=== PATIENT | male | born 1960 | race Caucasian/White ===

== ENCOUNTER 2020-01-05 16:00 | Observation (INO) ==
[2020-01-05 17:25] LABS: Basophils # 0.1 K/mcL (0.0-0.2); Basophils % 0.7 %; Eosinophils # 0.3 K/mcL (0.0-0.6); Eosinophils % 3.1 %; Hemoglobin 18.4 g/dL (12.9-16.9); Immature Granulocytes % 0.2 % (0-4); Lymphocytes # 1.2 K/mcL (0.6-4.6); Lymphocytes % 13.1 %; Mean Corpuscular HGB Conc 32.3 g/dL (31.6-35.5); Mean Corpuscular Hemoglobin 32.3 pg (28.0-33.3); Mean Platelet Volume 9.2 fL (9.4-12.4); Monocytes # 1.1 K/mcL (0.0-1.3); Monocytes % 12.3 %; Neutrophils # 6.2 K/mcL (1.6-8.9); Platelet Count 269 K/mcL (140-400); Red Blood Count 5.69 M/mcL (4.19-5.50); Red Cell Distribution Width 14.3 % (11.5-14.5); Segmented Neutrophils % 70.6 %; White Blood Count 8.8 K/mcL (4.3-11.1)
[2020-01-05 17:26] LABS: Hematocrit 56.9 % (37.5-50.1)
[2020-01-05 17:37] LABS: Prothrombin Time 11.7 Seconds (9.4-12.1)
[2020-01-05 17:40] LABS: Activated Partial Thrombo Time 33.4 Seconds (26.0-36.0)
[2020-01-05 17:49] LABS: Alanine Aminotransferase 4 Units/L (7-52); Albumin 3.8 g/dL (3.5-5.7); Albumin/Globulin Ratio 1.1 (1.1-2.2); Alkaline Phosphatase 73 Units/L (34-104); Aspartate Amino Transferase 11 Units/L (13-39); BUN/Creatinine Ratio 18 (6-26); Bilirubin,Total 0.6 mg/dL (0.3-1.0); Blood Urea Nitrogen 13 mg/dL (8-23); Calcium 9.7 mg/dL (8.6-10.3); Carbon Dioxide 30 mEq/L (23-29); Chloride 100 mEq/L (98-107); Globulin 3.6 g/dL (2.4-3.5); Glucose 98 mg/dL (70-105); Osmolality,Calculated 282 (280-300); Potassium 4.9 mEq/L (3.5-5.1); Sodium 136 mEq/L (136-145); Total Protein 7.4 g/dL (6.4-8.9); eGFR For African Americans > 60 (> 60); eGFR For Non-African Americans > 60 (> 60)
[2020-01-05] MEDS ORDERED: Naloxone 0.4 MG/ML INJ IVP PRN (20:29)
[2020-01-05] MEDS ORDERED: *HR* Enoxaparin 80 MG/0.8 ML SYRINGE SQ SCH (20:45)
[2020-01-05] MEDS ORDERED: Acetaminophen 325 MG TABLET PO PRN (22:19)
[2020-01-06 02:39] LABS: Hematocrit 53.1 % (37.5-50.1); Hemoglobin 17.7 g/dL (12.9-16.9); Mean Corpuscular HGB Conc 33.3 g/dL (31.6-35.5); Mean Corpuscular Hemoglobin 33.3 pg (28.0-33.3); Mean Corpuscular Volume 99.8 fL (83.0-100.0); Mean Platelet Volume 9.7 fL (9.4-12.4); Platelet Count 250 K/mcL (140-400); Red Blood Count 5.32 M/mcL (4.19-5.50); White Blood Count 6.5 K/mcL (4.3-11.1)
[2020-01-06 03:03] LABS: BUN/Creatinine Ratio 22 (6-26); Blood Urea Nitrogen 13 mg/dL (8-23); Carbon Dioxide 27 mEq/L (23-29); Chloride 102 mEq/L (98-107); Glucose 105 mg/dL (70-105); Osmolality,Calculated 282 (280-300); Potassium 3.5 mEq/L (3.5-5.1); Sodium 136 mEq/L (136-145); eGFR For African Americans > 60 (> 60); eGFR For Non-African Americans > 60 (> 60)
[2020-01-06] MEDS ORDERED: *HR* Enoxaparin 80 MG/0.8 ML SYRINGE SQ SCH (09:00)
[2020-01-06] MEDS: *HR* Enoxaparin 60 MG/0.6 ML SYRINGE SQ SCH (20:37)
[2020-01-07 03:28] LABS: Hemoglobin 17.6 g/dL (12.9-16.9); Mean Corpuscular HGB Conc 33.2 g/dL (31.6-35.5); Mean Corpuscular Hemoglobin 32.8 pg (28.0-33.3); Mean Corpuscular Volume 98.7 fL (83.0-100.0); Mean Platelet Volume 9.3 fL (9.4-12.4); Platelet Count 239 K/mcL (140-400); Red Blood Count 5.37 M/mcL (4.19-5.50); Red Cell Distribution Width 14.1 % (11.5-14.5); White Blood Count 5.8 K/mcL (4.3-11.1)
[2020-01-07] MEDS: *HR* Enoxaparin 60 MG/0.6 ML SYRINGE SQ SCH (05:40)
[2020-01-07 09:06] VITALS: BP 144/85
== END 2020-01-07 12:00 | disposition home or self-care (01) ==
LOC: 2ANU 16:00 → EMEROOARM 16:00 → 2ANU 20:09
PROVIDERS: ADMIT Family Medicine; ATTEND Family Medicine

== ENCOUNTER 2020-08-27 14:56 | Observation (INO) ==
[2020-08-27] MEDS ORDERED: Ibuprofen 400 MG TABLET PO ONE (16:18)
[2020-08-27] MEDS ORDERED: Isovue-370 500 ML BOTTLE IVP ONE (16:18)
[2020-08-27 16:19] LABS: Basophils # 0.1 K/mcL (0.0-0.2); Basophils % 0.7 %; Eosinophils # 0.1 K/mcL (0.0-0.6); Eosinophils % 0.7 %; Hematocrit 50.1 % (37.5-50.1); Hemoglobin 16.9 g/dL (12.9-16.9); Immature Granulocytes % 0.3 % (0-4); Lymphocytes # 1.2 K/mcL (0.6-4.6); Lymphocytes % 17.2 %; Mean Corpuscular HGB Conc 33.7 g/dL (31.6-35.5); Mean Corpuscular Hemoglobin 34.2 pg (28.0-33.3); Mean Corpuscular Volume 101.4 fL (83.0-100.0); Mean Platelet Volume 9.7 fL (9.4-12.4); Monocytes % 15.4 %; Neutrophils # 4.4 K/mcL (1.6-8.9); Platelet Count 257 K/mcL (140-400); Red Blood Count 4.94 M/mcL (4.19-5.50); Red Cell Distribution Width 13.1 % (11.5-14.5); Segmented Neutrophils % 65.7 %; White Blood Count 6.7 K/mcL (4.3-11.1)
[2020-08-27] MEDS ORDERED: 0.9 % Sodium Chloride 1,000 ML IVC ONE (16:21)
[2020-08-27 16:40] LABS: BUN/Creatinine Ratio 18 (6-26); Blood Urea Nitrogen 18 mg/dL (8-23); Calcium 9.7 mg/dL (8.6-10.3); Carbon Dioxide 33 mEq/L (23-29); Chloride 95 mEq/L (98-107); Glucose 125 mg/dL (70-105); Osmolality,Calculated 283 (280-300); Potassium 3.5 mEq/L (3.5-5.1); Sodium 135 mEq/L (136-145); eGFR For African Americans > 60 (> 60); eGFR For Non-African Americans > 60 (> 60)
[2020-08-27 16:50] LABS: Alanine Aminotransferase 10 Units/L (7-52); Albumin 4.3 g/dL (3.5-5.7); Albumin/Globulin Ratio 1.3 (1.1-2.2); Alkaline Phosphatase 60 Units/L (34-104); Aspartate Amino Transferase 19 Units/L (13-39); Bilirubin,Direct 0.1 mg/dL (0.0-0.2); Bilirubin,Indirect 0.6 mg/dL (0.0-1.0); Bilirubin,Total 0.7 mg/dL (0.3-1.0); Globulin 3.4 g/dL (2.4-3.5); Total Protein 7.7 g/dL (6.4-8.9); Troponin I < 0.03 ng/mL (< 0.04)
[2020-08-27] MEDS ORDERED: Naloxone 0.4 MG/ML INJ IVP PRN (20:37)
[2020-08-27] MEDS ORDERED: Acetaminophen 325 MG TABLET PO PRN (20:37)
[2020-08-27] MEDS ORDERED: Ondansetron 4 MG/2 ML VIAL IVP PRN (20:37)
[2020-08-27] MEDS ORDERED: 0.9 % Sodium Chloride 1,000 ML IVC SCH (20:45)
[2020-08-27 20:54] LABS: Bilirubin,Urine Negative (Negative); Blood,Urine Negative (Negative); Clarity,Urine Clear (Clear); Color,Urine Yellow (Yellow); Glucose,Urine (UA) Normal (Normal); Ketones,Urine Negative (Negative); Leukocyte Esterase,Urine Negative (Negative); Nitrite,Urine Negative (Negative); PH,Urine 6.5 pH Units (5.0-8.0); Protein,Urine Trace mg/dL (Neg-Trace); Specific Gravity,Urine > 1.030 (1.010-1.025)
[2020-08-28] MEDS ORDERED: *HR* Heparin 5,000 UNIT/ML VIAL IVP ONE (00:17)
[2020-08-28] MEDS ORDERED: *HR* Heparin 5,000 UNIT/ML VIAL IVP PRN ×2 (00:17)
[2020-08-28] MEDS ORDERED: Heparin 25,000UNIT/250ML 1/2NS 25,000 UNIT/250 ML IV.SOLN IVC SCH ×2 (00:30)
[2020-08-28] MEDS ORDERED: Perflutren Lipid Microsphere 1.3 ML in 0.9 % Sodium Chloride 8.7 ML IVP PRN (00:57)
[2020-08-28 02:09] LABS: Mean Corpuscular HGB Conc 33.9 g/dL (31.6-35.5); Mean Corpuscular Hemoglobin 34.1 pg (28.0-33.3); Mean Corpuscular Volume 100.7 fL (83.0-100.0); Platelet Count 216 K/mcL (140-400); Red Blood Count 4.37 M/mcL (4.19-5.50); Red Cell Distribution Width 12.9 % (11.5-14.5); White Blood Count 5.1 K/mcL (4.3-11.1)
[2020-08-28 02:13] LABS: Hemoglobin 14.9 g/dL (12.9-16.9)
[2020-08-28 02:29] LABS: BUN/Creatinine Ratio 23 (6-26); Blood Urea Nitrogen 18 mg/dL (8-23); Calcium 8.7 mg/dL (8.6-10.3); Carbon Dioxide 29 mEq/L (23-29); Chloride 100 mEq/L (98-107); Glucose 121 mg/dL (70-105); Osmolality,Calculated 289 (280-300); Potassium 3.1 mEq/L (3.5-5.1); Sodium 138 mEq/L (136-145); Troponin I < 0.03 ng/mL (< 0.04); eGFR For African Americans > 60 (> 60); eGFR For Non-African Americans > 60 (> 60)
[2020-08-28 03:31] LABS: INR 1.2; Prothrombin Time 14.3 Seconds (9.4-12.1)
[2020-08-28 03:46] LABS: Activated Partial Thrombo Time > 360.0 Seconds (26.0-36.0); Heparin anti-factor XA UFH 1.34 IU/mL (0.30-0.70)
[2020-08-28] MEDS: Loratadine 10 MG TABLET PO SCH (09:47)
[2020-08-28] MEDS: *HR* Rivaroxaban 15 MG TABLET PO SCH ×2 (09:47→20:50)
[2020-08-28] MEDS ORDERED: Nicotine 14 MG PATCH.TD24 TD PRN (16:03)
[2020-08-28] MEDS ORDERED: Nicotine 2 MG GUM BC PRN (16:03)
[2020-08-29 07:32] VITALS: BP 122/76
[2020-08-29] MEDS: Loratadine 10 MG TABLET PO SCH (08:40)
[2020-08-29] MEDS: *HR* Rivaroxaban 15 MG TABLET PO SCH (08:40)
[2020-08-31 03:47] LABS: APTT (LE Anticoag) >150 sec (32-48); Diluted Russell Viper Venom 45 sec (33-44); LE APTT D Heparin Neutralized 55 sec (32-48); LE Coag APTT Mixing 43 sec (32-48); LE Coag Reptilase Time 15.9 sec (<=21.9); LE Dil. Russell Viper Mix 1:1 38 sec (33-44); PT (LE-Anticoag) 17.2 sec (12.0-15.5); Thrombin Time >150.0 sec (14.7-19.5)
== END 2020-08-29 09:58 | disposition home or self-care (01) ==
LOC: EMEROOARM 14:56 → 3ANU 14:56 → SUATTDRO 19:51 → 3ANU 20:50
PROVIDERS: ADMIT Internal Medicine; ATTEND Internal Medicine

== ENCOUNTER 2021-07-07 10:18 | Observation (INO) ==
[2021-07-07] MEDS ORDERED: Aspirin 81 MG TAB.CHEW PO ONE (10:23)
[2021-07-07] MEDS ORDERED: Isovue-370 500 ML BOTTLE IVP ONE (11:01)
[2021-07-07 11:03] LABS: Basophils % 0.5 %; Eosinophils % 0.1 %; Hemoglobin 18.8 g/dL (12.9-16.9); Immature Granulocytes % 0.4 % (0-4); Red Cell Distribution Width 14.3 % (11.5-14.5)
[2021-07-07 11:05] LABS: Hematocrit 53.4 % (37.5-50.1); Immature Platelets 5.9 % (1.1-6.1); Lymphocytes # 0.7 K/mcL (0.6-4.6); Lymphocytes % 8.1 %; Mean Corpuscular HGB Conc 35.2 g/dL (31.6-35.5); Mean Corpuscular Hemoglobin 34.3 pg (28.0-33.3); Mean Corpuscular Volume 97.4 fL (83.0-100.0); Mean Platelet Volume 10.4 fL (9.4-12.4); Monocytes # 0.8 K/mcL (0.0-1.3); Monocytes % 10.2 %; Neutrophils # 6.5 K/mcL (1.6-8.9); Platelet Count 107 K/mcL (140-400); Red Blood Count 5.48 M/mcL (4.19-5.50); Segmented Neutrophils % 80.7 %
[2021-07-07 11:13] LABS: D-Dimer 3870 ng/mLFEU (0-500)
[2021-07-07] MEDS ORDERED: *HR* Heparin 5,000 UNIT/ML VIAL IVP PRN (11:18)
[2021-07-07] MEDS ORDERED: *HR* Heparin 5,000 UNIT/ML VIAL IVP ONE (11:18)
[2021-07-07] MEDS ORDERED: Heparin 25,000UNIT/250ML 1/2NS 25,000 UNIT/250 ML IV.SOLN IVC SCH (11:30)
[2021-07-07 11:33] LABS: INR 1.1; Prothrombin Time 12.5 Seconds (9.4-12.1); Troponin I < 0.03 ng/mL (< 0.04)
[2021-07-07 11:36] LABS: Activated Partial Thrombo Time 36.6 Seconds (26.0-36.0); Heparin anti-factor XA UFH < 0.04 IU/mL (0.30-0.70)
[2021-07-07 11:50] LABS: BUN/Creatinine Ratio 12 (6-26); Blood Urea Nitrogen 8 mg/dL (8-23); Calcium 8.5 mg/dL (8.6-10.3); Carbon Dioxide 25 mEq/L (23-29); Chloride 95 mEq/L (98-107); Glucose 139 mg/dL (70-105); Osmolality,Calculated 275 (280-300); Potassium 3.1 mEq/L (3.5-5.1); Sodium 132 mEq/L (136-145); eGFR For African Americans > 60 (> 60); eGFR For Non-African Americans > 60 (> 60)
[2021-07-07] MEDS ORDERED: Potassium Chloride Elixir 20 MEQ/15 ML UDC PO ONE (12:25)
[2021-07-07] MEDS ORDERED: Perflutren Lipid Microsphere 1.3 ML in 0.9 % Sodium Chloride 8.7 ML IVP PRN (13:21)
[2021-07-07] MEDS ORDERED: Naloxone 0.4 MG/ML INJ IVP PRN (13:21)
[2021-07-07] MEDS: predniSONE 20 MG TABLET PO SCH (14:37)
[2021-07-07] MEDS: Azithromycin 250 MG TABLET PO SCH (14:37)
[2021-07-07] MEDS: Ipratropium/Albuterol Neb 3 ML IH SCH ×2 (15:51→20:14)
[2021-07-07] MEDS: *HR* Heparin 5,000 UNIT/ML VIAL IVP PRN (18:27)
[2021-07-07] MEDS: Budesonide/Formoterol 160/4.5 1 PUFF INH IH SCH (20:18)
[2021-07-08 01:03] LABS: Basophils % 0.2 %
[2021-07-08 01:05] LABS: Hemoglobin 17.7 g/dL (12.9-16.9); Immature Granulocytes % 0.6 % (0-4); Immature Platelets 6.6 % (1.1-6.1); Lymphocytes # 0.4 K/mcL (0.6-4.6); Lymphocytes % 6.8 %; Mean Corpuscular HGB Conc 34.7 g/dL (31.6-35.5); Mean Corpuscular Volume 98.1 fL (83.0-100.0); Mean Platelet Volume 10.7 fL (9.4-12.4); Monocytes # 0.5 K/mcL (0.0-1.3); Monocytes % 7.1 %; Platelet Count 109 K/mcL (140-400); Red Cell Distribution Width 14.1 % (11.5-14.5); Segmented Neutrophils % 85.3 %; White Blood Count 6.4 K/mcL (4.3-11.1)
[2021-07-08 01:11] LABS: Neutrophils # 5.5 K/mcL (1.6-8.9)
[2021-07-08 01:20] LABS: BUN/Creatinine Ratio 13 (6-26); Blood Urea Nitrogen 11 mg/dL (8-23); Calcium 8.5 mg/dL (8.6-10.3); Carbon Dioxide 30 mEq/L (23-29); Chloride 96 mEq/L (98-107); Glucose 172 mg/dL (70-105); Magnesium 1.1 mg/dL (1.6-2.6); Osmolality,Calculated 279 (280-300); Potassium 3.8 mEq/L (3.5-5.1); Sodium 133 mEq/L (136-145); eGFR For African Americans > 60 (> 60); eGFR For Non-African Americans > 60 (> 60)
[2021-07-08] MEDS: *HR* Heparin 5,000 UNIT/ML VIAL IVP PRN (02:30)
[2021-07-08] MEDS: Ipratropium/Albuterol Neb 3 ML IH SCH ×2 (04:04→10:12)
[2021-07-08] MEDS: predniSONE 20 MG TABLET PO SCH (08:26)
[2021-07-08] MEDS: Azithromycin 250 MG TABLET PO SCH (08:26)
[2021-07-08] MEDS ORDERED: lisinopriL 5 MG TABLET PO SCH (09:00)
[2021-07-08] MEDS: Budesonide/Formoterol 160/4.5 1 PUFF INH IH SCH (10:12)
[2021-07-08] MEDS ORDERED: *HR* Rivaroxaban 15 MG TABLET PO SCH (10:30)
[2021-07-08 10:59] VITALS: BP 120/67; PULSE 72; TEMP 98.2; O2SAT 95
[2021-07-08 11:52] LABS: Estimated Average Glucose 100 mg/dl; Hemoglobin A1C 5.1 %
== END 2021-07-08 12:33 | disposition home or self-care (01) ==
LOC: EMEROOARM 10:18 → 3NENU 10:18 → SUATTDRO 12:47 → 3NENU 13:53
PROVIDERS: ADMIT Internal Medicine; ATTEND Internal Medicine